=== PATIENT | female | born 1985 | race American Indian/Alaskan Native ===

== ENCOUNTER 2016-08-29 01:48 | Emergency (ER) | payer MEDICAID ==
[2016-08-29 07:35] LABS: Hematocrit 31.6 % (30.3-42.9); Hemoglobin 9.6 gm/dl (10.1-14.3); Mean Corpuscular HGB Conc 30 % (30-34); Platelet Count 445 K/mm3 (140-440); Red Blood Count 4.89 M/mm3 (3.65-5.03); Red Cell Distribution Width 19.7 % (13.2-15.2); White Blood Count 12.1 K/mm3 (4.5-11.0)
[2016-08-29 07:46] LABS: Bacteria,Urine 1+ /HPF (Negative); Bilirubin,Urine NEG (Negative); Blood,Urine NEG (Negative); Ketones,Urine TR mg/dL (Negative); Leukocyte Esterase,Urine MOD (Negative); Mucus,Urine 2+ /HPF; Nitrite,Urine NEG (Negative); Urobilinogen,Urine < 2.0 mg/dL (<2.0)
[2016-08-29 07:57] LABS: Chloride 98.1 mmol/L (98-107); Potassium 3.5 mmol/L (3.6-5.0); Sodium 139 mmol/L (137-145)
[2016-08-29 08:01] LABS: Mean Corpuscular Hemoglobin 20 pg (28-32); Mean Corpuscular Volume 65 fl (79-97)
--- NOTE | 2016-08-29 08:15 | Cat Scan Report ---
FINAL REPORT EXAM: CT HEAD/BRAIN WO CON HISTORY: headache TECHNIQUE: CT of the head was performed. No intravenous contrast was administered. PRIORS: None. FINDINGS: There is no evidence of intracranial hemorrhage. There is no edema, mass effect or midline shift. There are no abnormal extra-axial fluid collections. The ventricles are appropriate for brain volume. There is no skull fracture seen. The visualized aspects of the sinuses are clear. IMPRESSION: There is no acute intracranial abnormality identified.
[2016-08-29 08:38] LABS: Anion Gap 19 mmol/L; BUN/Creatinine Ratio 18.33; Blood Urea Nitrogen 11 mg/dL (7-17); Calcium 9.2 mg/dL (8.4-10.2); Carbon Dioxide 25 mmol/L (22-30)
[2016-08-29 08:49] LABS: Glucose 85 mg/dL (65-100)
[2016-08-29] MEDS ORDERED: TORADOL IM ONE (11:04)
--- NOTE | 2016-08-29 11:05 | Emergency Department Report ---
ED General Adult HPI - General Chief complaint: Headache Stated complaint: HEADACHE, ELEVATED BLOOD PRESSURE Time Seen by Provider: 08/29/16 10:52 Source: patient, RN notes reviewed Mode of arrival: Ambulatory Limitations: No Limitations - History of Present Illness Initial comments: This is a 30-year-old female. She is previously unknown to me. Has a past medical history of psychiatric disease status post possible suicide attempt, and hypertension, elevated blood pressure, anemia. The patient presents to the ER complaining of headache. The headache is left-sided and retroauricular. It is not sudden or thunderclap in nature. It started yesterday. It did not reach maximal intensity within an hour. It worsens when she leans forward. She reports starting clonidine recently, for blood pressure, it feels somewhat lightheaded when she takes this medicine. There is no neck pain or neck stiffness. There is no photophobia. There is no extremity weakness or numbness. There is no ataxia. This is not the worse headache of her life. She reports a worse headache in May. She is currently not homicidal, she is currently not suicidal. She reports frequent headaches. -: Gradual Location: head Severity scale (0 -10): 10 Quality: aching Consistency: intermittent Improves with: other (per hpi) Worsens with: other (per hpi) Associated Symptoms: denies: confusion, chest pain, cough, diaphoresis, fever/ chills, headaches, loss of appetite, malaise, nausea/vomiting, rash, seizure, shortness of breath, syncope, weakness - Related Data Home Medications Medication Instructions Recorded Confirmed Last Taken Ferrous Sulfate [Feosol] 325 mg PO QDAY 08/29/16 08/29/16 Unknown QUEtiapine [SEROquel] 25 mg PO QHS 08/29/16 08/29/16 Unknown cloNIDine [Catapres] 0.1 mg PO DAILY 08/29/16 08/29/16 Unknown Allergies Allergy/AdvReac Type Severity Reaction Status Date / Time No Known Allergies Allergy Unverified 08/29/16 07:05 ED Review of Systems ROS: Stated complaint: HEADACHE, ELEVATED BLOOD PRESSURE Other details as noted in HPI Constitutional: denies: malaise Eyes: denies: eye discharge ENT: denies: hearing loss Respiratory: denies: cough Cardiovascular: denies: chest pain Gastrointestinal: denies: abdominal pain Genitourinary: denies: urgency, dysuria Musculoskeletal: denies: back pain Neurological: headache Psychiatric: denies: depression ED Past Medical Hx - Past Medical History Hx Hypertension: Yes Hx Psychiatric Treatment: Yes (Siucidal Attempt) Additional medical history: Anemia - Surgical History Hx Cholecystectomy: Yes Additional Surgical History: Left Lumpectomy - Social History Smoking Status: Never Smoker Substance Use Type: None - Medications Home Medications: Home Medications Medication Instructions Recorded Confirmed Last Taken Type Ferrous Sulfate [Feosol] 325 mg PO QDAY 08/29/16 08/29/16 Unknown History QUEtiapine [SEROquel] 25 mg PO QHS 08/29/16 08/29/16 Unknown History cloNIDine [Catapres] 0.1 mg PO DAILY 08/29/16 08/29/16 Unknown History ED Physical Exam - General Limitations: No Limitations General appearance: alert, in no apparent distress - Head Head exam: Present: atraumatic, normocephalic, other (there is left sided reproducible retroauricular tenderness, with no redness, pus or streaks. There are no vesicles noted.) - Eye Eye exam: Present: normal appearance, PERRL, EOMI. Absent: nystagmus - ENT ENT exam: Present: normal exam, normal orophraynx, mucous membranes moist, normal external ear exam - Neck Neck exam: Present: normal inspection, full ROM. Absent: tenderness, meningismus - Respiratory Respiratory exam: Present: normal lung sounds bilaterally. Absent: respiratory distress, wheezes, rales, rhonchi, stridor, decreased breath sounds - Cardiovascular Cardiovascular Exam: Present: regular rate, normal rhythm, normal heart sounds. Absent: bradycardia, tachycardia, irregular rhythm, systolic murmur, diastolic murmur, rubs, gallop - GI/Abdominal GI/Abdominal exam: Present: soft, normal bowel sounds. Absent: distended, tenderness, guarding, rebound, rigid, pulsatile mass - Extremities Exam Extremities exam: Present: normal inspection, full ROM, normal capillary refill. Absent: tenderness, pedal edema, joint swelling - Back Exam Back exam: Present: normal inspection, full ROM. Absent: tenderness, CVA tenderness (R) - Neurological Exam Neurological exam: Present: alert, oriented X3, normal gait (normal gait. Finger to nose within normal limits, normal [id number], normal tandem gait, negative Romberg), other (Extraocular movements intact. Tongue midline. No facial droop. Facial sensation intact to light touch in the V1, V2, V3 distribution bilaterally. 5 and 5 strength in 4 extremities.. Sensation is intact to light touch in 4 extremities.). Absent: motor sensory deficit - Psychiatric Psychiatric exam: Present: normal affect, normal mood - Skin Skin exam: Present: warm, dry, intact, normal color. Absent: rash ED Course Vital Signs 08/29/16 08/29/16 08/29/16 06:48 08:40 13:05 Temperature 98 F Pulse Rate 81 87 78 Respiratory 18 20 16 Rate Blood Pressure 160/109 Blood Pressure 160/109 148/100 135/82 [Left] O2 Sat by Pulse 100 99 99 Oximetry - Reevaluation(s) Reevaluation #1: 08/29/16 12:51 Differential diagnosis: Migraine headache, tension headache, cluster headache, muscular headache, medication side effect Assessment and plan: 30-year-old female with reproducible left-sided retroauricular headache, with nonspecific dizziness and context of initiating clonidine therapy. Headache is not sudden or thunderclap in nature, it did not reach maximal intensity within an hour, and it is not the worse headache of her life. She has a GCS of 15, with an NIH score of 0, neurologic exam is unremarkable, there is no right show occipital redness, pus, swelling, vesicles or mastoid tenderness. Laboratory studies were unremarkable, a noncontrast CT scan of the brain is negative. Does not appear that the patient's headache is consistent with an emergent pathology at this time. She will be discharged at this time back to her psychiatric facility. ED Medical Decision Making - Lab Data Result diagrams: 08/29/16 07:19 08/29/16 07:19 Vital Signs 08/29/16 08/29/16 06:48 08:40 Temperature 98 F Pulse Rate 81 87 Respiratory 18 20 Rate Blood Pressure 160/109 Blood Pressure 160/109 148/100 [Left] O2 Sat by Pulse 100 99 Oximetry Lab Results 08/29/16 08/29/16 08/29/16 Range/Units 07:19 07:19 Unknown WBC 12.1 H (4.5-11.0) K/mm3 RBC 4.89 (3.65-5.03) M/mm3 Hgb 9.6 L (10.1-14.3) gm/dl Hct 31.6 (30.3-42.9) % MCV 65 L (79-97) fl MCH 20 L (28-32) pg MCHC 30 (30-34) % RDW 19.7 H (13.2-15.2) % Plt Count 445 H (140-440) K/mm3 Lymph % (Auto) 36.7 H (13.4-35.0) % [place] % (Auto) 4.7 (0.0-7.3) % Eos % (Auto) 2.0 (0.0-4.3) % Baso % (Auto) 1.0 (0.0-1.8) % Lymph # 4.4 (1.2-5.4) K/mm3 Blair # 0.6 (0.0-0.8) K/mm3 Eos # 0.2 (0.0-0.4) K/mm3 Baso # 0.1 (0.0-0.1) K/mm3 Seg Neutrophils % 55.6 (40.0-70.0) % Seg Neutrophils # 6.7 (1.8-7.7) K/mm3 Sodium 139 (137-145) mmol/L Potassium 3.5 L (3.6-5.0) mmol/L Chloride 98.1 (98-107) mmol/L Carbon Dioxide 25 (22-30) mmol/L Anion Gap 19 mmol/L BUN 11 (7-17) mg/dL Creatinine 0.6 L (0.7-1.2) mg/dL Estimated GFR > 60 ml/min BUN/Creatinine Ratio 18.33 % Glucose 85 (65-100) mg/dL Calcium 9.2 (8.4-10.2) mg/dL Urine Color Yellow (Yellow) Urine Turbidity Cloudy (Clear) Urine pH 6.0 (5.0-7.0) Ur Specific [place] 1.021 (1.003-1.030) Urine Protein 30 mg/dl (Negative) mg/dL Urine Glucose (UA) Neg (Negative) mg/dL Urine Ketones Tr (Negative) mg/dL Urine Blood Neg (Negative) Urine Nitrite Neg (Negative) Urine Bilirubin Neg (Negative) Urine Urobilinogen < 2.0 (<2.0) mg/dL Ur Leukocyte Esterase Mod (Negative) Urine WBC (Auto) 4.0 (0.0-6.0) /HPF Urine RBC (Auto) 2.0 (0.0-6.0) /HPF U Epithel Cells (Auto) 39.0 H (0-13.0) /HPF Urine Bacteria (Auto) 1+ (Negative) /HPF Urine Mucus 2+ /HPF Urine HCG, Qual Negative (Negative) - Radiology Data Radiology results: report reviewed, image reviewed Noncontrast CAT scan of the brain is negative. Critical care attestation.: If time is entered above; I have spent that time in minutes in the direct care of this critically ill patient, excluding procedure time. ED Disposition Clinical Impression: Headache Disposition: DC/TX PSY HOSP/PSY UNIT Is pt being admited?: No Does the pt Need Aspirin: No Condition: Good Additional Instructions: Continue outpatient medications, with the exception of clonidine. Consider initiating an alternative antihypertensive medication besides clonidine. Follow up with her primary care doctor or neurology specialist for headache once psychiatrically stabilized. Headache symptoms may be coming from clonidine. Return to the ER right away with new pain, worsened pain, migration of pain, fevers or chills, intractable nausea or vomiting, inability to tolerate liquid feeds. Referrals: PRIMARY CARE, [Primary Care Provider] - 3-5 Days IRINA HAGAN MD [Staff Physician] - 3-5 Days
[2016-08-29 13:39] VITALS: BP 135/82
== END 2016-08-29 14:09 ==
LOC: ED 01:48
DX: R51 Headache (principal); I10 Essential (primary) hypertension; Z86.2 Personal history of diseases of the blood and blood-forming organs and certain disorders involving the immune mechanism; Z79.899 Other long term (current) drug therapy
CPT/HCPCS: 36415; 70450; 80048; 81001; 81025; 85025; 96372; 99284; J1885